=== PATIENT | female | born 1995 | race Caucasian/White ===

== ENCOUNTER 2021-05-07 10:02 | Emergency (ER) | payer MEDICAID ==
[~2021-05-07] VITALS: Ht 157.5 cm; Wt 65.0 kg
[2021-05-07 13:03] VITALS: BP 123/78
== END 2021-05-07 13:05 | disposition home or self-care (01) ==
LOC: ER 10:02
DX: B34.9 Viral infection, unspecified (principal); Z20.822 Contact with and (suspected) exposure to COVID-19
CPT/HCPCS: 71045; 81025; 99284; C9803; U0003; U0005